=== PATIENT | female | born 1955 ===

== ENCOUNTER 2021-07-31 08:21 | Outpatient (CLI) | payer OTHER | END 2021-07-31 08:25 | disposition home or self-care (01) | LOC: SONOGRAMA 08:21 | PROVIDERS: ATTEND Pathology Anatomic Pathology & Clinical Pathology | DX: D34 Benign neoplasm of thyroid gland (principal); E04.2 Nontoxic multinodular goiter; E06.5 Other chronic thyroiditis; E06.3 Autoimmune thyroiditis ==